=== PATIENT | female | born 1950 | race Caucasian/White ===

== ENCOUNTER 2017-10-18 17:35 | Emergency (ER) | payer MEDICARE, OTHER ==
[2017-10-18] MEDS: DEXAMETHASONE 10 MG/ML 1 ML INJ IM (18:51)
== END 2017-10-18 23:11 | disposition home or self-care (01) ==
LOC: FTE 17:35
DX: L30.8 Other specified dermatitis (principal); I10 Essential (primary) hypertension; Z91.14 Patient's other noncompliance with medication regimen
CPT/HCPCS: 96372; 99284-25